=== PATIENT | female | born 1950 | race Caucasian/White ===

== ENCOUNTER 2022-01-16 09:03 | Outpatient (CLI) | payer MEDICARE | END 2022-01-16 09:04 | disposition home or self-care (01) | LOC: RAD-FRANK 09:03 | PROVIDERS: ATTEND Nurse Practitioner Family | DX: R06.02 Shortness of breath (principal) | CPT/HCPCS: 71046 ==

== ENCOUNTER 2022-10-31 13:54 | Outpatient (CLI) | payer MEDICARE | END 2022-10-31 13:55 | disposition home or self-care (01) | LOC: RAD-FRANK 13:54 | PROVIDERS: ATTEND Nurse Practitioner Family | DX: M79.675 Pain in left toe(s) (principal); S92.425D Nondisplaced fracture of distal phalanx of left great toe, subsequent encounter for fracture with routine healing ==

== ENCOUNTER 2023-05-11 22:49 | Inpatient (IN) | payer MEDICARE ==
[2023-05-11 23:57] LABS: #Eosinphils 0.1 thou/uL (0.0-0.7); #Monocytes 0.4 thou/uL (0.11-0.59); #Neutrophils 3.3 thou/uL (1.40-6.50); %Basophils 0.5 % (0.0-1.0); %Eosinophils 2.5 % (0.0-10.0); %Lymphocytes 10.9 % (21.0-51.0); %Monocytes 10.2 % (0.0-10.0); %Neutrophils 75.4 % (42.0-75.0); Hematocrit 33.6 % (36.0-47.0); Hemoglobin 10.2 g/dL (12.0-16.0); Mean Corpuscular HGB CONC 30.4 g/dL (32.0-36.0); Mean Corpuscular Hemoglobin 29.4 pg (27.0-31.0); Mean Corpuscular Volume 96.8 fl (78.0-98.0); Mean Platelet Volume 8.8 fL (7.4-10.4); Platelet Count 193 10x3/uL (130-400); RBC Distribution Width 14.3 % (11.5-14.5); Red Blood Cell (RBC) Count 3.47 mill/uL (4.20-5.40); White Blood Cell (WBC) Count 4.3 10x3/uL (4.8-10.8)
[2023-05-12 00:23] LABS: Troponin I Less than 0.010 ng/mL (< 0.028)
[2023-05-12 00:27] LABS: ALT (SGPT) 7 U/L (8-55); AST (SGOT) 12 U/L (5-34); Albumin 3.9 g/dL (3.4-4.8); Alkaline Phosphatase 80 U/L (40-110); Anion Gap 17 mmol/L (10-20); BUN (Urea Nitrogen) 12 mg/dL (9.8-20.1); Bilirubin, Total 1.4 mg/dL (0.2-1.2); Calc. Creatinine Clearance 0 mL/min (70-130); Calcium 8.3 mg/dL (7.8-10.44); Carbon Dioxide 27 mmol/L (23-31); Chloride 98 mmol/L (98-107); Estimated GFR 67; Globulin 2.3 g/dL (2.4-3.5); Glucose 139 mg/dL (83-110); Potassium 4.1 mmol/L (3.5-5.1); Protein, Total 6.2 g/dL (5.8-8.1); Sodium 138 mmol/L (136-145)
[2023-05-12 01:59] LABS: SARS-CoV-2 NAA Rapid Test DETECTED (NotDetected)
[2023-05-12] MEDS ORDERED: Ondansetron ODT 4 MG TAB PO PRN (02:34)
[2023-05-12] MEDS ORDERED: Ondansetron PF 4 MG/2 ML Vial IVP PRN (02:34)
[2023-05-12] MEDS ORDERED: Acetaminophen 650 MG Suppository PR PRN (02:34)
[2023-05-12] MEDS ORDERED: Albuterol 200 PUFF (6.7GM INHALER) INH PRN (02:34)
[2023-05-12] MEDS ORDERED: Benzonatate 100 MG CAP PO PRN (02:34)
[2023-05-12] MEDS ORDERED: Dexamethasone 4 mg/ml Vial SLOW IVP SCH (04:00)
[2023-05-12] MEDS ORDERED: Acetaminophen 325 MG TAB ONE (06:10)
[2023-05-12] MEDS ORDERED: Furosemide 40 MG/4 ML VIAL ONE (06:11)
[2023-05-12] MEDS ORDERED: Dexamethasone 10 MG/ML VIAL ONE (06:11)
[2023-05-12] MEDS: Furosemide 40 MG/4 ML VIAL SLOW IVP SCH (06:42)
[2023-05-12 06:46] LABS: #Eosinphils 0.1 thou/uL (0.0-0.7); #Monocytes 0.4 thou/uL (0.11-0.59); #Neutrophils 3.9 thou/uL (1.40-6.50); %Basophils 0.6 % (0.0-1.0); %Eosinophils 1.4 % (0.0-10.0); %Lymphocytes 12.6 % (21.0-51.0); %Monocytes 8.7 % (0.0-10.0); %Neutrophils 76.1 % (42.0-75.0); Hematocrit 38.4 % (36.0-47.0); Hemoglobin 11.6 g/dL (12.0-16.0); Mean Corpuscular HGB CONC 30.2 g/dL (32.0-36.0); Mean Corpuscular Hemoglobin 29.4 pg (27.0-31.0); Mean Corpuscular Volume 97.5 fl (78.0-98.0); Mean Platelet Volume 9.1 fL (7.4-10.4); Platelet Count 207 10x3/uL (130-400); RBC Distribution Width 14.3 % (11.5-14.5); Red Blood Cell (RBC) Count 3.94 mill/uL (4.20-5.40); White Blood Cell (WBC) Count 5.1 10x3/uL (4.8-10.8)
[2023-05-12 07:14] LABS: Anion Gap 15 mmol/L (10-20); BUN (Urea Nitrogen) 11 mg/dL (9.8-20.1); Calc. Creatinine Clearance 0 mL/min (70-130); Calcium 9.1 mg/dL (7.8-10.44); Carbon Dioxide 29 mmol/L (23-31); Chloride 97 mmol/L (98-107); Estimated GFR 70; Glucose 137 mg/dL (83-110); Potassium 4.1 mmol/L (3.5-5.1); Sodium 137 mmol/L (136-145)
[2023-05-12] MEDS ORDERED: Dextrose 5% in Water 1,000 ML IV PRN (07:21)
[2023-05-12] MEDS ORDERED: Glucagon 1 MG/ML KIT IM PRN (07:21)
[2023-05-12] MEDS ORDERED: Dextrose 50% Abboject 50 ML SYRINGE SLOW IVP PRN (07:21)
[2023-05-12] MEDS ORDERED: Ondansetron PF 4 MG/2 ML Vial ONE (07:39)
[2023-05-12 07:48] LABS: Hemoglobin A1c 7.4 % (4.0-6.0)
[2023-05-12] MEDS ORDERED: Pantoprazole 40 MG VIAL ONE (08:17)
[2023-05-12] MEDS ORDERED: Ascorbic Acid 500 mg Chewable Tablet ONE (08:24)
[2023-05-12] MEDS ORDERED: Zinc Sulfate 220 MG CAP ONE (08:25)
[2023-05-12] MEDS: Pantoprazole 40 MG VIAL IVP SCH (08:30)
[2023-05-12] MEDS ORDERED: dilTIAZem 25 MG/5 ML VIAL SLOW IVP SCH (08:30)
[2023-05-12] MEDS: Zinc Sulfate 220 MG CAP PO SCH (08:31)
[2023-05-12] MEDS: Ascorbic Acid 500 mg Chewable Tablet PO SCH (08:31)
[2023-05-12] MEDS ORDERED: dilTIAZem 25 MG/5 ML VIAL ONE (08:33)
[2023-05-12 09:09] LABS: ALT (SGPT) 8 U/L (8-55); AST (SGOT) 14 U/L (5-34); Albumin 4.3 g/dL (3.4-4.8); Alkaline Phosphatase 86 U/L (40-110); Bilirubin, Direct 0.6 mg/dL (0.1-0.3); Bilirubin, Total 1.5 mg/dL (0.2-1.2); Magnesium 1.4 mg/dL (1.6-2.6); Protein, Total 7.5 g/dL (5.8-8.1)
[2023-05-12] MEDS ORDERED: Magnesium Sulfate In Water 4 GM in Premix 1 BAG IVPB SCH (09:15)
[2023-05-12] MEDS ORDERED: Electrolyte Replacement Protocol 1 EACH FS SCH (09:15)
[2023-05-12] MEDS: dilTIAZem 125 MG, Admixture Fee 1 EACH in Sodium Chloride 0.9% 100 ML IVPB SCH (09:20)
[2023-05-12] MEDS: Cholecalciferol (Vitamin D3) 400 UNITS TAB PO SCH (10:04)
[2023-05-12 10:18] LABS: Troponin I 0.022 ng/mL (< 0.028)
[2023-05-12 12:15] VITALS: BMI 43.6
[2023-05-12] MEDS ORDERED: Iopamidol 370 76% 100 ML VIAL ONE (13:37)
[2023-05-12 13:50] LABS: ALT (SGPT) 9 U/L (8-55); AST (SGOT) 13 U/L (5-34); Albumin 4.2 g/dL (3.4-4.8); Alkaline Phosphatase 87 U/L (40-110); Bilirubin, Direct 0.7 mg/dL (0.1-0.3); Bilirubin, Total 1.5 mg/dL (0.2-1.2); Protein, Total 7.3 g/dL (5.8-8.1)
[2023-05-12 13:55] LABS: Troponin I 0.011 ng/mL (< 0.028)
[2023-05-12] MEDS: Acetaminophen 325 MG TAB PO PRN (16:12)
[2023-05-12] MEDS: Atorvastatin Calcium 20 MG TAB PO SCH (19:29)
[2023-05-12] MEDS: Gabapentin 400 MG CAP PO SCH (19:29)
[2023-05-12] MEDS ORDERED: REMDESIVIR 200 MG in Sodium Chloride 0.9% 250 ML 210 ML IV SCH (23:59)
[2023-05-13] MEDS: traMADol HCl 50 MG TAB PO PRN (00:32)
[2023-05-13] MEDS: AMOXicillin 250 MG CAP PO SCH ×4 (01:01→22:54)
[2023-05-13] MEDS: Melatonin 3 MG TAB PO PRN (02:03)
[2023-05-13 04:19] LABS: %Neutrophils 57.2 % (42.0-75.0); Hematocrit 34.8 % (36.0-47.0); Hemoglobin 10.8 g/dL (12.0-16.0); Mean Corpuscular Hemoglobin 29.5 pg (27.0-31.0); Mean Corpuscular Volume 95.1 fl (78.0-98.0); Platelet Count 203 10x3/uL (130-400); Red Blood Cell (RBC) Count 3.66 mill/uL (4.20-5.40); White Blood Cell (WBC) Count 3.5 10x3/uL (4.8-10.8)
[2023-05-13 04:20] LABS: #Monocytes 0.6 thou/uL (0.11-0.59); %Lymphocytes 26.6 % (21.0-51.0); %Monocytes 15.6 % (0.0-10.0)
[2023-05-13 04:48] LABS: Anion Gap 15 mmol/L (10-20); BUN (Urea Nitrogen) 13 mg/dL (9.8-20.1); Calc. Creatinine Clearance 115 mL/min (70-130); Calcium 8.9 mg/dL (7.8-10.44); Carbon Dioxide 31 mmol/L (23-31); Chloride 94 mmol/L (98-107); Estimated GFR 74; Glucose 143 mg/dL (83-110); Magnesium 1.9 mg/dL (1.6-2.6); Potassium 3.5 mmol/L (3.5-5.1); Sodium 136 mmol/L (136-145)
[2023-05-13 04:51] LABS: ALT (SGPT) Less than 7 U/L (8-55); AST (SGOT) 13 U/L (5-34); Alkaline Phosphatase 71 U/L (40-110); Bilirubin, Direct 0.5 mg/dL (0.1-0.3); Bilirubin, Total 1.1 mg/dL (0.2-1.2); Protein, Total 6.7 g/dL (5.8-8.1)
[2023-05-13] MEDS: Furosemide 40 MG/4 ML VIAL SLOW IVP SCH (06:07)
[2023-05-13] MEDS: Dexamethasone 4 mg/ml Vial SLOW IVP SCH (06:08)
[2023-05-13] MEDS: HumaLOG 300 UNITS/3 ML VIAL SC PRN ×4 (06:46→21:44)
[2023-05-13] MEDS: dilTIAZem 125 MG, Admixture Fee 1 EACH in Sodium Chloride 0.9% 100 ML IVPB SCH (06:57)
[2023-05-13] MEDS ORDERED: Magnesium 2 GM/50 ML(in water) 2 GM in Premix 1 BAG IVPB SCH (08:00)
[2023-05-13 08:23] LABS: Legionella Urinary Ag Negative (Negative); Strep pneumo Urine Ag NEGATIVE (NEGATIVE)
[2023-05-13] MEDS: Gabapentin 400 MG CAP PO SCH ×3 (08:47→22:53)
[2023-05-13] MEDS: Pantoprazole 40 MG VIAL IVP SCH (08:47)
[2023-05-13] MEDS: Zinc Sulfate 220 MG CAP PO SCH (08:47)
[2023-05-13] MEDS: Ascorbic Acid 500 mg Chewable Tablet PO SCH (08:47)
[2023-05-13] MEDS: Cholecalciferol (Vitamin D3) 400 UNITS TAB PO SCH (08:47)
[2023-05-13] MEDS: Potassium Chloride 20 MEQ in Premix 1 BAG IVPB SCH ×2 (08:48→11:52)
[2023-05-13] MEDS: Acetaminophen 325 MG TAB PO PRN (11:56)
[2023-05-13 17:24] LABS: Potassium 4.4 mmol/L (3.5-5.1)
[2023-05-13] MEDS: Atorvastatin Calcium 20 MG TAB PO SCH (22:53)
[2023-05-13] MEDS: REMDESIVIR 100 MG in Sodium Chloride 0.9% 250 ML 230 ML IV SCH (22:55)
[2023-05-14] MEDS: Acetaminophen 325 MG TAB PO PRN ×2 (02:11→22:27)
[2023-05-14] MEDS: Melatonin 3 MG TAB PO PRN ×2 (02:11→21:52)
[2023-05-14 05:33] LABS: #Monocytes 0.7 thou/uL (0.11-0.59); #Neutrophils 1.7 thou/uL (1.40-6.50); %Monocytes 18.7 % (0.0-10.0); %Neutrophils 47.7 % (42.0-75.0); Hematocrit 36.5 % (36.0-47.0); Mean Corpuscular HGB CONC 30.1 g/dL (32.0-36.0); Mean Corpuscular Hemoglobin 29.3 pg (27.0-31.0); Mean Corpuscular Volume 97.1 fl (78.0-98.0); Mean Platelet Volume 9.1 fL (7.4-10.4); Platelet Count 207 10x3/uL (130-400); RBC Distribution Width 14.1 % (11.5-14.5); Red Blood Cell (RBC) Count 3.76 mill/uL (4.20-5.40); White Blood Cell (WBC) Count 3.5 10x3/uL (4.8-10.8)
[2023-05-14 06:02] LABS: Anion Gap 13 mmol/L (10-20); BUN (Urea Nitrogen) 21 mg/dL (9.8-20.1); Calc. Creatinine Clearance 99 mL/min (70-130); Calcium 8.5 mg/dL (7.8-10.44); Carbon Dioxide 34 mmol/L (23-31); Chloride 95 mmol/L (98-107); Estimated GFR 60; Glucose 234 mg/dL (83-110); Magnesium 1.9 mg/dL (1.6-2.6); Potassium 4.1 mmol/L (3.5-5.1); Sodium 138 mmol/L (136-145)
[2023-05-14] MEDS: Furosemide 40 MG/4 ML VIAL SLOW IVP SCH (06:27)
[2023-05-14] MEDS: Dexamethasone 4 mg/ml Vial SLOW IVP SCH (06:27)
[2023-05-14] MEDS: HumaLOG 300 UNITS/3 ML VIAL SC PRN ×4 (06:27→20:42)
[2023-05-14] MEDS: Zinc Sulfate 220 MG CAP PO SCH (07:58)
[2023-05-14] MEDS: Gabapentin 400 MG CAP PO SCH ×3 (07:58→20:44)
[2023-05-14] MEDS: AMOXicillin 250 MG CAP PO SCH (07:59)
[2023-05-14] MEDS: Ascorbic Acid 500 mg Chewable Tablet PO SCH (07:59)
[2023-05-14] MEDS: Cholecalciferol (Vitamin D3) 400 UNITS TAB PO SCH (07:59)
[2023-05-14] MEDS ORDERED: Magnesium 2 GM/50 ML(in water) 2 GM in Premix 1 BAG IVPB SCH (08:00)
[2023-05-14] MEDS: dilTIAZem 125 MG, Admixture Fee 1 EACH in Sodium Chloride 0.9% 100 ML IVPB SCH (10:18)
[2023-05-14] MEDS ORDERED: Sodium Chloride 0.65% Nasal 44 ML BOT EA NARE PRN (18:34)
[2023-05-14] MEDS: REMDESIVIR 100 MG in Sodium Chloride 0.9% 250 ML 230 ML IV SCH (20:42)
[2023-05-14] MEDS: Fluticasone Propionate Nasal Spray 16 gm Bottle NASAL SCH (20:43)
[2023-05-14] MEDS: Insulin Glargine 30 UNITS/0.3 ML VIAL SC SCH (20:45)
[2023-05-14] MEDS: Atorvastatin Calcium 20 MG TAB PO SCH (20:45)
[2023-05-15 05:46] LABS: #Monocytes 0.6 thou/uL (0.11-0.59); #Neutrophils 1.9 thou/uL (1.40-6.50); %Basophils 0.3 % (0.0-1.0); %Lymphocytes 34.9 % (21.0-51.0); %Monocytes 16.5 % (0.0-10.0); %Neutrophils 47.8 % (42.0-75.0); Hematocrit 39.2 % (36.0-47.0); Hemoglobin 11.9 g/dL (12.0-16.0); Mean Corpuscular HGB CONC 30.4 g/dL (32.0-36.0); Mean Corpuscular Volume 95.4 fl (78.0-98.0); Mean Platelet Volume 8.9 fL (7.4-10.4); Platelet Count 227 10x3/uL (130-400); RBC Distribution Width 13.8 % (11.5-14.5); Red Blood Cell (RBC) Count 4.11 mill/uL (4.20-5.40); White Blood Cell (WBC) Count 3.9 10x3/uL (4.8-10.8)
[2023-05-15] MEDS: traMADol HCl 50 MG TAB PO PRN (05:56)
[2023-05-15] MEDS: Dexamethasone 4 mg/ml Vial SLOW IVP SCH (05:57)
[2023-05-15] MEDS: Furosemide 40 MG/4 ML VIAL SLOW IVP SCH (05:58)
[2023-05-15] MEDS: HumaLOG 300 UNITS/3 ML VIAL SC PRN ×2 (06:45→16:24)
[2023-05-15 08:08] LABS: Anion Gap 14 mmol/L (10-20); BUN (Urea Nitrogen) 24 mg/dL (9.8-20.1); Calc. Creatinine Clearance 108 mL/min (70-130); Carbon Dioxide 34 mmol/L (23-31); Chloride 92 mmol/L (98-107); Estimated GFR 72; Glucose 206 mg/dL (83-110); Magnesium 1.8 mg/dL (1.6-2.6); Potassium 3.9 mmol/L (3.5-5.1); Sodium 136 mmol/L (136-145)
[2023-05-15] MEDS: Enoxaparin 120 MG/0.8 ML SYRINGE SC SCH ×2 (08:49→21:46)
[2023-05-15] MEDS: Ascorbic Acid 500 mg Chewable Tablet PO SCH (08:50)
[2023-05-15] MEDS: Gabapentin 400 MG CAP PO SCH ×3 (08:50→21:46)
[2023-05-15] MEDS: Zinc Sulfate 220 MG CAP PO SCH (08:50)
[2023-05-15] MEDS: Cholecalciferol (Vitamin D3) 400 UNITS TAB PO SCH (08:50)
[2023-05-15] MEDS ORDERED: Magnesium 2 GM/50 ML(in water) 2 GM in Premix 1 BAG IVPB SCH (09:00)
[2023-05-15] MEDS: Fluticasone Propionate Nasal Spray 16 gm Bottle NASAL SCH ×2 (09:27→21:48)
[2023-05-15] MEDS: dilTIAZem 125 MG, Admixture Fee 1 EACH in Sodium Chloride 0.9% 100 ML IVPB SCH (09:28)
[2023-05-15] MEDS: dilTIAZem 30 MG TAB PO SCH (21:46)
[2023-05-15] MEDS: Atorvastatin Calcium 20 MG TAB PO SCH (21:46)
[2023-05-15] MEDS: Insulin Glargine 30 UNITS/0.3 ML VIAL SC SCH (21:47)
[2023-05-15] MEDS: REMDESIVIR 100 MG in Sodium Chloride 0.9% 250 ML 230 ML IV SCH (21:48)
[2023-05-16 04:15] LABS: #Monocytes 0.9 thou/uL (0.11-0.59); #Neutrophils 2.3 thou/uL (1.40-6.50); %Basophils 0.2 % (0.0-1.0); %Lymphocytes 34.8 % (21.0-51.0); %Monocytes 18.4 % (0.0-10.0); %Neutrophils 46.2 % (42.0-75.0); Hematocrit 43.3 % (36.0-47.0); Hemoglobin 13.4 g/dL (12.0-16.0); Mean Corpuscular HGB CONC 30.9 g/dL (32.0-36.0); Mean Corpuscular Hemoglobin 29.1 pg (27.0-31.0); Mean Corpuscular Volume 93.9 fl (78.0-98.0); Mean Platelet Volume 8.7 fL (7.4-10.4); Platelet Count 232 10x3/uL (130-400); RBC Distribution Width 13.6 % (11.5-14.5); Red Blood Cell (RBC) Count 4.61 mill/uL (4.20-5.40); White Blood Cell (WBC) Count 4.9 10x3/uL (4.8-10.8)
[2023-05-16 04:36] LABS: Anion Gap 17 mmol/L (10-20); BUN (Urea Nitrogen) 27 mg/dL (9.8-20.1); Calc. Creatinine Clearance 107 mL/min (70-130); Carbon Dioxide 33 mmol/L (23-31); Chloride 91 mmol/L (98-107); Estimated GFR 71; Glucose 224 mg/dL (83-110); Magnesium 1.6 mg/dL (1.6-2.6); Sodium 137 mmol/L (136-145)
[2023-05-16] MEDS: Furosemide 40 MG/4 ML VIAL SLOW IVP SCH (05:30)
[2023-05-16] MEDS: Dexamethasone 4 mg/ml Vial SLOW IVP SCH (05:30)
[2023-05-16] MEDS: HumaLOG 300 UNITS/3 ML VIAL SC PRN ×4 (06:02→20:45)
[2023-05-16] MEDS ORDERED: Magnesium 2 GM/50 ML(in water) 2 GM in Premix 1 BAG IVPB SCH (08:00)
[2023-05-16] MEDS: Cholecalciferol (Vitamin D3) 400 UNITS TAB PO SCH (08:57)
[2023-05-16] MEDS: Enoxaparin 120 MG/0.8 ML SYRINGE SC SCH (08:57)
[2023-05-16] MEDS: Gabapentin 400 MG CAP PO SCH ×3 (08:57→20:23)
[2023-05-16] MEDS: dilTIAZem 30 MG TAB PO SCH ×2 (08:57→20:22)
[2023-05-16] MEDS: Zinc Sulfate 220 MG CAP PO SCH (08:58)
[2023-05-16] MEDS: Ascorbic Acid 500 mg Chewable Tablet PO SCH (08:58)
[2023-05-16] MEDS: Fluticasone Propionate Nasal Spray 16 gm Bottle NASAL SCH ×2 (08:59→20:24)
[2023-05-16] MEDS: Furosemide 20 MG TAB PO SCH (14:15)
[2023-05-16] MEDS: Apixaban 5 MG TAB PO SCH (20:23)
[2023-05-16] MEDS: Atorvastatin Calcium 20 MG TAB PO SCH (20:23)
[2023-05-16] MEDS: REMDESIVIR 100 MG in Sodium Chloride 0.9% 250 ML 230 ML IV SCH (20:24)
[2023-05-16] MEDS: Melatonin 3 MG TAB PO PRN (20:28)
[2023-05-16] MEDS: Insulin Glargine 30 UNITS/0.3 ML VIAL SC SCH (20:39)
[2023-05-17 04:56] LABS: %Basophils 0.2 % (0.0-1.0); %Lymphocytes 32.7 % (21.0-51.0); %Monocytes 16.5 % (0.0-10.0); %Neutrophils 50.3 % (42.0-75.0); Hemoglobin 14.7 g/dL (12.0-16.0); Mean Corpuscular HGB CONC 31.3 g/dL (32.0-36.0); Mean Corpuscular Hemoglobin 29.1 pg (27.0-31.0); Mean Corpuscular Volume 92.9 fl (78.0-98.0); Mean Platelet Volume 9.6 fL (7.4-10.4); Platelet Count 233 10x3/uL (130-400); RBC Distribution Width 13.8 % (11.5-14.5); Red Blood Cell (RBC) Count 5.06 mill/uL (4.20-5.40)
[2023-05-17] MEDS: traMADol HCl 50 MG TAB PO PRN (05:36)
[2023-05-17] MEDS: HumaLOG 300 UNITS/3 ML VIAL SC PRN ×2 (05:37→11:17)
[2023-05-17 05:39] LABS: Anion Gap 20 mmol/L (10-20); BUN (Urea Nitrogen) 39 mg/dL (9.8-20.1); Calc. Creatinine Clearance 88 mL/min (70-130); Calcium 9.4 mg/dL (7.8-10.44); Carbon Dioxide 32 mmol/L (23-31); Chloride 89 mmol/L (98-107); Estimated GFR 57; Glucose 219 mg/dL (83-110); Magnesium 1.8 mg/dL (1.6-2.6); Potassium 3.7 mmol/L (3.5-5.1); Sodium 137 mmol/L (136-145)
[2023-05-17] MEDS ORDERED: Dexamethasone 1 MG TAB PO SCH (08:00)
[2023-05-17] MEDS ORDERED: Magnesium 2 GM/50 ML(in water) 2 GM in Premix 1 BAG IVPB SCH (08:00)
[2023-05-17] MEDS: Apixaban 5 MG TAB PO SCH (09:33)
[2023-05-17] MEDS: Ascorbic Acid 500 mg Chewable Tablet PO SCH (09:34)
[2023-05-17] MEDS: Furosemide 20 MG TAB PO SCH ×2 (09:34→14:50)
[2023-05-17] MEDS: dilTIAZem 30 MG TAB PO SCH (09:34)
[2023-05-17] MEDS: Gabapentin 400 MG CAP PO SCH ×2 (09:34→14:50)
[2023-05-17] MEDS: Cholecalciferol (Vitamin D3) 400 UNITS TAB PO SCH (09:34)
[2023-05-17] MEDS: Zinc Sulfate 220 MG CAP PO SCH (09:35)
[2023-05-17] MEDS: Fluticasone Propionate Nasal Spray 16 gm Bottle NASAL SCH (09:45)
[2023-05-17 16:02] VITALS: BP 160/68; TEMP 97.4
== END 2023-05-17 17:23 | disposition home or self-care (01) | DRG 177 ==
LOC: ERS 22:49 → ERHOLD 05-12 02:30 → OBSVTOIN 05-12 08:10 → IMCU/EMU 05-12 11:57 → 2NO 05-15 19:42
PROVIDERS: ADMIT Student in an Organized Health Care Education/Training Program; ATTEND Family Medicine
PROC: 5A09357 Assistance with Respiratory Ventilation, Less than 24 Consecutive Hours, Continuous Positive Airway Pressure (ICD-10-PCS; principal; 2023-05-12)
DX: U07.1 COVID-19 (principal); I50.33 Acute on chronic diastolic (congestive) heart failure; J12.82 Pneumonia due to coronavirus disease 2019; J96.21 Acute and chronic respiratory failure with hypoxia; Z68.41 Body mass index [BMI] 40.0-44.9, adult; I48.91 Unspecified atrial fibrillation; D64.9 Anemia, unspecified; Z79.84 Long term (current) use of oral hypoglycemic drugs; Z79.899 Other long term (current) drug therapy; E78.5 Hyperlipidemia, unspecified; Z98.890 Other specified postprocedural states; F32.A Depression, unspecified; E11.42 Type 2 diabetes mellitus with diabetic polyneuropathy; J20.9 Acute bronchitis, unspecified; E66.9 Obesity, unspecified; Z90.49 Acquired absence of other specified parts of digestive tract; Z87.891 Personal history of nicotine dependence; E66.01 Morbid (severe) obesity due to excess calories
CPT/HCPCS: 36415; 36416; 71045; 71260; 80048; 80053; 80076; 83036; 83605; 83735; 83880; 84145; 84443; 84484; 85025; 86140; 86850; 86900; 86901; 87040; 87081; 87449; 87899; 93005; 93306; 94660; 96374; C9113; J0248; J1100; J1650; J1815; J1940; J2405; J3475; J3480; J3490; J7050; J8540; Q9967

== ENCOUNTER 2023-06-09 17:20 | Inpatient (IN) | payer MEDICARE ==
[2023-06-09] MEDS ORDERED: Cefepime 2 GM VIAL ONE (17:41)
[2023-06-09] MEDS ORDERED: Sodium Chloride 0.9% 100 ML ONE (17:41)
[2023-06-09 17:47] LABS: #Eosinphils 0.1 thou/uL (0.0-0.7); #Monocytes 0.6 thou/uL (0.11-0.59); #Neutrophils 4.8 thou/uL (1.40-6.50); %Basophils 0.2 % (0.0-1.0); %Eosinophils 1.3 % (0.0-10.0); %Lymphocytes 33.2 % (21.0-51.0); %Neutrophils 57.5 % (42.0-75.0); Hematocrit 31.4 % (36.0-47.0); Hemoglobin 9.3 g/dL (12.0-16.0); Mean Corpuscular HGB CONC 29.6 g/dL (32.0-36.0); Mean Corpuscular Hemoglobin 29.1 pg (27.0-31.0); Mean Corpuscular Volume 98.1 fl (78.0-98.0); Mean Platelet Volume 9.2 fL (7.4-10.4); Platelet Count 185 10x3/uL (130-400); RBC Distribution Width 14.5 % (11.5-14.5); White Blood Cell (WBC) Count 8.3 10x3/uL (4.8-10.8)
[2023-06-09 17:51] LABS: Actual Bicarbonate (HCO3v) 28.5 mEq/L (22-28); Base Excess 1.5 mEq/L (-2.0 to +3.0); Calcium, Ionized (venous) 1.01 mmol/L (1.16-1.32); Chloride (VBG) 97 mmol/L (98-106); Hematocrit-VBG 31 % (36.0-47.0); Hemoglobin (Hb) 10.6 g/dL (11.7-16.1); Potassium (VBG) 5.12 mmol/L (3.70-5.30); Sodium 133 mmol/L (133-146); pH (venous) 7.318 (7.32-7.43)
[2023-06-09] MEDS ORDERED: Vancomycin (BATCH) 2 GM in Premix 1 BAG IVPB SCH (18:00)
[2023-06-09 18:09] LABS: ALT (SGPT) Less than 7 U/L (8-55); AST (SGOT) 10 U/L (5-34); Albumin 3.4 g/dL (3.4-4.8); Alkaline Phosphatase 84 U/L (40-110); Anion Gap 14 mmol/L (10-20); BUN (Urea Nitrogen) 35 mg/dL (9.8-20.1); Bilirubin, Total 0.8 mg/dL (0.2-1.2); Calc. Creatinine Clearance 0 mL/min (70-130); Calcium 7.6 mg/dL (7.8-10.44); Carbon Dioxide 27 mmol/L (23-31); Chloride 98 mmol/L (98-107); Estimated GFR 22; Globulin 2.4 g/dL (2.4-3.5); Glucose 143 mg/dL (83-110); Potassium 5.2 mmol/L (3.5-5.1); Protein, Total 5.8 g/dL (5.8-8.1); Sodium 134 mmol/L (136-145)
[2023-06-09 18:13] LABS: Troponin I 0.173 ng/mL (< 0.028)
[2023-06-09 18:16] LABS: INR-International Normal Ratio 1.4; PTT 29.7 sec (22.9-36.1); Prothrombin Time 17.5 sec (12.0-14.7)
[2023-06-09 18:54] LABS: Bacteria/HPF 1+ HPF (None Seen); Bilirubin Negative (Negative); Blood, Urine Negative (Negative); CAUTI Indications for Culture Dysuria,urgency,freq; Clarity Turbid (Clear); Glucose, Urine (Dipstick) Normal (Negative); Ketone, Urine Negative (Negative); Leukocyte 250 Leu/uL (Negative); Nitrite Negative (Negative); Protein, Urine (Dipstick) 30 mg/dL (Neg-Trace); RBC/HPF 0-3 HPF (0-3); Specific Gravity, Urine 1.022 (1.002-1.036); Urobilinogen Normal mg/dL (Less than 2); WBC/HPF 21-50 HPF (0-3)
[2023-06-09] MEDS ORDERED: NOREPINEPHRINE 8 MG/250 ML-D5W 250 ML ONE (18:54)
[2023-06-09 18:55] LABS: Urine Culture Reflex Yes Yes
[2023-06-09 19:18] LABS: SARS-CoV-2 NAA Rapid Test Not Detected (NotDetected)
[2023-06-09] MEDS ORDERED: Aspirin Chewable 81 MG TAB ONE (19:45)
[2023-06-09] MEDS ORDERED: Vancomycin (BATCH) 2 GM/500 ML BAG ONE (19:47)
[2023-06-09] MEDS ORDERED: HYDROcodone/Acetaminophen 5/325 mg Tablet PO PRN ×2 (20:21)
[2023-06-09] MEDS ORDERED: Ondansetron PF 4 MG/2 ML Vial IVP PRN (20:21)
[2023-06-09] MEDS ORDERED: Ondansetron ODT 4 MG TAB PO PRN (20:21)
[2023-06-09] MEDS ORDERED: Acetaminophen 325 MG TAB PO PRN (20:21)
[2023-06-09] MEDS ORDERED: NOREPINEPHRINE 8 MG/250 ML-D5W 250 ML IVPB SCH (20:30)
[2023-06-09] MEDS ORDERED: Glucagon 1 MG/ML KIT IM PRN (20:42)
[2023-06-09] MEDS ORDERED: Dextrose 5% in Water 1,000 ML IV PRN (20:42)
[2023-06-09] MEDS ORDERED: Dextrose 50% Abboject 50 ML SYRINGE SLOW IVP PRN (20:42)
[2023-06-09] MEDS ORDERED: Vancomycin 1 GM in Sodium Chloride 0.9% 250 ML 250 ML IVPB SCH (21:00)
[2023-06-09] MEDS ORDERED: Sodium Chloride 0.9% 1,000 ML IV SCH (21:45)
[2023-06-09] MEDS ORDERED: Digoxin 0.5 MG/2 ML AMP SLOW IVP SCH (21:45)
[2023-06-09] MEDS: Apixaban 5 MG TAB PO SCH (21:59)
[2023-06-09] MEDS: Gabapentin 400 MG CAP PO SCH (21:59)
[2023-06-09 22:02] LABS: Magnesium 1.4 mg/dL (1.6-2.6)
[2023-06-09] MEDS ORDERED: Vancomycin Dose by Levels Sliding Scale (Wt > 99) FS SCH (22:15)
[2023-06-09] MEDS: HumaLOG 300 UNITS/3 ML VIAL SC PRN (22:30)
[2023-06-09] MEDS ORDERED: Hydrocortisone Sod Succ/PF 100 mg/2 ml Vial IVP SCH (23:00)
[2023-06-09] MEDS ORDERED: Magnesium 2 GM/50 ML(in water) 4 GM in Premix 1 BAG IVPB SCH (23:00)
[2023-06-10 04:15] LABS: #Monocytes 0.2 thou/uL (0.11-0.59); #Neutrophils 4.6 thou/uL (1.40-6.50); %Basophils 0.3 % (0.0-1.0); %Eosinophils 0.5 % (0.0-10.0); %Lymphocytes 18.5 % (21.0-51.0); %Monocytes 3.8 % (0.0-10.0); %Neutrophils 75.6 % (42.0-75.0); Hematocrit 29.2 % (36.0-47.0); Hemoglobin 8.8 g/dL (12.0-16.0); Mean Corpuscular HGB CONC 30.1 g/dL (32.0-36.0); Mean Corpuscular Hemoglobin 29.5 pg (27.0-31.0); Mean Platelet Volume 9.1 fL (7.4-10.4); Platelet Count 156 10x3/uL (130-400); RBC Distribution Width 14.5 % (11.5-14.5); Red Blood Cell (RBC) Count 2.98 mill/uL (4.20-5.40); White Blood Cell (WBC) Count 6.1 10x3/uL (4.8-10.8)
[2023-06-10 04:43] LABS: ALT (SGPT) Less than 7 U/L (8-55); AST (SGOT) 9 U/L (5-34); Albumin 3.1 g/dL (3.4-4.8); Alkaline Phosphatase 76 U/L (40-110); Anion Gap 11 mmol/L (10-20); BUN (Urea Nitrogen) 32 mg/dL (9.8-20.1); Bilirubin, Total 0.6 mg/dL (0.2-1.2); Calc. Creatinine Clearance 57 mL/min (70-130); Calcium 7.8 mg/dL (7.8-10.44); Carbon Dioxide 28 mmol/L (23-31); Chloride 100 mmol/L (98-107); Estimated GFR 30; Globulin 2.8 g/dL (2.4-3.5); Glucose 272 mg/dL (83-110); Magnesium 1.9 mg/dL (1.6-2.6); Potassium 5.5 mmol/L (3.5-5.1); Protein, Total 5.9 g/dL (5.8-8.1); Sodium 133 mmol/L (136-145)
[2023-06-10 04:47] LABS: Troponin I 0.198 ng/mL (< 0.028)
[2023-06-10] MEDS: Hydrocortisone Sod Succ/PF 100 mg/2 ml Vial IVP SCH ×4 (06:20→23:52)
[2023-06-10] MEDS: HumaLOG 300 UNITS/3 ML VIAL SC PRN ×4 (06:20→20:56)
[2023-06-10] MEDS ORDERED: Electrolyte Replacement Protocol 1 EACH FS SCH (07:15)
[2023-06-10] MEDS ORDERED: LOKELMA 10 GM PACKET PO SCH (07:30)
[2023-06-10] MEDS ORDERED: Electrolyte Replacement Protocol FS PRN (07:30)
[2023-06-10] MEDS ORDERED: Magnesium 2 GM/50 ML(in water) 4 GM in Premix 1 BAG IVPB SCH (07:30)
[2023-06-10 08:01] VITALS: BMI 45.7
[2023-06-10] MEDS ORDERED: Magnesium 2 GM/50 ML(in water) 2 GM in Premix 1 BAG IVPB SCH (08:15)
[2023-06-10] MEDS: Gabapentin 400 MG CAP PO SCH ×3 (08:25→20:58)
[2023-06-10] MEDS: Apixaban 5 MG TAB PO SCH ×2 (08:25→20:58)
[2023-06-10] MEDS: Atorvastatin Calcium 20 MG TAB PO SCH (08:25)
[2023-06-10] MEDS: Sodium Chloride 0.9% 1,000 ML IV SCH ×2 (11:14→18:17)
[2023-06-10] MEDS ORDERED: Sodium Chloride 0.9% 500 ML IV SCH (11:15)
[2023-06-10 15:14] LABS: Anion Gap 10 mmol/L (10-20); BUN (Urea Nitrogen) 26 mg/dL (9.8-20.1); Calc. Creatinine Clearance 81 mL/min (70-130); Carbon Dioxide 29 mmol/L (23-31); Chloride 101 mmol/L (98-107); Estimated GFR 46; Glucose 237 mg/dL (83-110); Potassium 4.9 mmol/L (3.5-5.1); Sodium 135 mmol/L (136-145)
[2023-06-10] MEDS ORDERED: Cefepime 1 GM in Sodium Chloride 0.9% 100 ML IVPB SCH (18:00)
[2023-06-10 20:23] LABS: Vancomycin, Random 10.9 ug/mL (See Comment)
[2023-06-10 20:32] LABS: Chloride 101 mmol/L (98-107); Potassium 4.6 mmol/L (3.5-5.1); Sodium 134 mmol/L (136-145)
[2023-06-10 20:33] LABS: Calcium 8.1 mg/dL (7.8-10.44)
[2023-06-10 20:34] LABS: Glucose 252 mg/dL (83-110)
[2023-06-10 20:35] LABS: Anion Gap 11 mmol/L (10-20); Carbon Dioxide 27 mmol/L (23-31)
[2023-06-10 20:38] LABS: Calc. Creatinine Clearance 88 mL/min (70-130); Estimated GFR 51
[2023-06-10 20:39] LABS: BUN (Urea Nitrogen) 24 mg/dL (9.8-20.1)
[2023-06-10] MEDS: Insulin Glargine 30 UNITS/0.3 ML VIAL SC SCH (20:57)
[2023-06-10] MEDS ORDERED: Vancomycin (BATCH) 1.75 GM in Premix 1 BAG IVPB SCH (21:00)
[2023-06-11] MEDS: Sodium Chloride 0.9% 1,000 ML IV SCH (02:23)
[2023-06-11 04:49] LABS: #Monocytes 0.3 thou/uL (0.11-0.59); #Neutrophils 5.5 thou/uL (1.40-6.50); %Basophils 0.2 % (0.0-1.0); %Lymphocytes 11.3 % (21.0-51.0); %Monocytes 4.5 % (0.0-10.0); %Neutrophils 82.9 % (42.0-75.0); Hematocrit 30.6 % (36.0-47.0); Hemoglobin 9.3 g/dL (12.0-16.0); Mean Corpuscular HGB CONC 30.4 g/dL (32.0-36.0); Mean Corpuscular Hemoglobin 29.2 pg (27.0-31.0); Mean Corpuscular Volume 95.9 fl (78.0-98.0); Mean Platelet Volume 9.3 fL (7.4-10.4); Platelet Count 178 10x3/uL (130-400); RBC Distribution Width 14.1 % (11.5-14.5); Red Blood Cell (RBC) Count 3.19 mill/uL (4.20-5.40); White Blood Cell (WBC) Count 6.7 10x3/uL (4.8-10.8)
[2023-06-11 05:19] LABS: Iron 65 ug/dL (50-170); Iron Binding Capacity, Total 210 mcg/dL (265-497)
[2023-06-11 05:20] LABS: ALT (SGPT) Less than 7 U/L (8-55); AST (SGOT) 9 U/L (5-34); Albumin 2.8 g/dL (3.4-4.8); Alkaline Phosphatase 70 U/L (40-110); Anion Gap 13 mmol/L (10-20); BUN (Urea Nitrogen) 19 mg/dL (9.8-20.1); Bilirubin, Direct 0.2 mg/dL (0.1-0.3); Bilirubin, Total 0.4 mg/dL (0.2-1.2); Calc. Creatinine Clearance 112 mL/min (70-130); Carbon Dioxide 22 mmol/L (23-31); Chloride 105 mmol/L (98-107); Estimated GFR 67; Glucose 186 mg/dL (83-110); Iron 66 ug/dL (50-170); Iron Binding Capacity, Total 206 mcg/dL (265-497); Potassium 4.6 mmol/L (3.5-5.1); Protein, Total 5.8 g/dL (5.8-8.1); Sodium 135 mmol/L (136-145)
[2023-06-11] MEDS ORDERED: Cefepime 1 GM in Sodium Chloride 0.9% 100 ML IVPB SCH (06:00)
[2023-06-11] MEDS: Hydrocortisone Sod Succ/PF 100 mg/2 ml Vial IVP SCH ×3 (06:17→23:37)
[2023-06-11] MEDS: HumaLOG 300 UNITS/3 ML VIAL SC PRN ×3 (06:31→16:45)
[2023-06-11] MEDS ORDERED: Magnesium 2 GM/50 ML(in water) 2 GM in Premix 1 BAG IVPB SCH (08:00)
[2023-06-11] MEDS ORDERED: Potassium Chloride 20 MEQ TAB PO SCH (08:00)
[2023-06-11] MEDS: Atorvastatin Calcium 20 MG TAB PO SCH (08:11)
[2023-06-11] MEDS: Apixaban 5 MG TAB PO SCH ×2 (08:11→23:36)
[2023-06-11] MEDS: Gabapentin 400 MG CAP PO SCH ×3 (08:11→23:36)
[2023-06-11] MEDS: dilTIAZem 30 MG TAB PO SCH ×4 (08:13→23:36)
[2023-06-11] MEDS: traMADol HCl 50 MG TAB PO PRN ×2 (08:14→23:54)
[2023-06-11 08:22] LABS: Ferritin 297.78 ng/mL (10-291)
[2023-06-11] MEDS ORDERED: FLU VACC QS2023(65UP)/MF59C/PF 60 MCG/0.5 ML SYRINGE IM ONE (09:00)
[2023-06-11] MEDS: Cefepime 2 GM in Sodium Chloride 0.9% 100 ML IVPB SCH (17:19)
[2023-06-11] MEDS: Flecainide 50 MG TAB PO SCH (23:36)
[2023-06-11] MEDS: Insulin Glargine 30 UNITS/0.3 ML VIAL SC SCH (23:37)
[2023-06-11] MEDS: Melatonin 3 MG TAB PO PRN (23:46)
[2023-06-12 04:26] LABS: #Monocytes 0.8 thou/uL (0.11-0.59); #Neutrophils 8.1 thou/uL (1.40-6.50); %Basophils 0.3 % (0.0-1.0); %Eosinophils 0.4 % (0.0-10.0); %Lymphocytes 11.2 % (21.0-51.0); %Monocytes 7.6 % (0.0-10.0); %Neutrophils 79.6 % (42.0-75.0); Hematocrit 32.1 % (36.0-47.0); Hemoglobin 9.5 g/dL (12.0-16.0); Mean Corpuscular HGB CONC 29.6 g/dL (32.0-36.0); Mean Corpuscular Hemoglobin 28.9 pg (27.0-31.0); Mean Corpuscular Volume 97.6 fl (78.0-98.0); Mean Platelet Volume 9.1 fL (7.4-10.4); Platelet Count 241 10x3/uL (130-400); RBC Distribution Width 14.4 % (11.5-14.5); Red Blood Cell (RBC) Count 3.29 mill/uL (4.20-5.40); White Blood Cell (WBC) Count 10.2 10x3/uL (4.8-10.8)
[2023-06-12 04:49] LABS: Anion Gap 11 mmol/L (10-20); BUN (Urea Nitrogen) 17 mg/dL (9.8-20.1); Calc. Creatinine Clearance 125 mL/min (70-130); Calcium 8.5 mg/dL (7.8-10.44); Carbon Dioxide 29 mmol/L (23-31); Chloride 103 mmol/L (98-107); Estimated GFR 78; Glucose 147 mg/dL (83-110); Magnesium 2.2 mg/dL (1.6-2.6); Potassium 4.2 mmol/L (3.5-5.1); Sodium 139 mmol/L (136-145)
[2023-06-12] MEDS: Cefepime 2 GM in Sodium Chloride 0.9% 100 ML IVPB SCH ×2 (06:40→17:48)
[2023-06-12] MEDS: dilTIAZem 30 MG TAB PO SCH ×4 (09:55→21:31)
[2023-06-12] MEDS: Atorvastatin Calcium 20 MG TAB PO SCH (09:55)
[2023-06-12] MEDS: Gabapentin 400 MG CAP PO SCH ×3 (09:55→21:31)
[2023-06-12] MEDS: Hydrocortisone Sod Succ/PF 100 mg/2 ml Vial IVP SCH ×2 (09:56→21:32)
[2023-06-12] MEDS: Apixaban 5 MG TAB PO SCH ×2 (09:56→21:31)
[2023-06-12] MEDS: Flecainide 50 MG TAB PO SCH ×2 (09:58→21:31)
[2023-06-12] MEDS: Insulin Glargine 30 UNITS/0.3 ML VIAL SC SCH (21:32)
[2023-06-12] MEDS: Melatonin 3 MG TAB PO PRN (21:33)
[2023-06-12] MEDS: traMADol HCl 50 MG TAB PO PRN (21:33)
[2023-06-13] MEDS: Cefepime 2 GM in Sodium Chloride 0.9% 100 ML IVPB SCH ×2 (05:40→18:17)
[2023-06-13] MEDS: Gabapentin 400 MG CAP PO SCH ×2 (08:43→15:59)
[2023-06-13] MEDS: Hydrocortisone Sod Succ/PF 100 mg/2 ml Vial IVP SCH (08:43)
[2023-06-13] MEDS: dilTIAZem 30 MG TAB PO SCH ×3 (08:43→15:59)
[2023-06-13] MEDS: Apixaban 5 MG TAB PO SCH (08:43)
[2023-06-13] MEDS: Atorvastatin Calcium 20 MG TAB PO SCH (08:44)
[2023-06-13] MEDS: Flecainide 50 MG TAB PO SCH (08:44)
[2023-06-13 18:10] VITALS: BP 158/78; TEMP 98.6
[2023-06-13] MEDS ORDERED: Hydrocortisone 10 mg Tablet PO SCH (21:00)
== END 2023-06-13 17:50 | disposition home or self-care (01) | DRG 871 ==
LOC: SUATTDRO 17:20 → ERS 17:20 → CCU 20:26 → 2NO 06-11 18:23
PROVIDERS: ADMIT Family Medicine; ATTEND Internal Medicine
PROC: 02HV33Z Insertion of Infusion Device into Superior Vena Cava, Percutaneous Approach (ICD-10-PCS; principal; 2023-06-09)
PROC: B548ZZA Ultrasonography of Superior Vena Cava, Guidance (ICD-10-PCS; 2023-06-09)
PROC: 3E033XZ Introduction of Vasopressor into Peripheral Vein, Percutaneous Approach (ICD-10-PCS; 2023-06-09)
PROC: 3E03329 Introduction of Other Anti-infective into Peripheral Vein, Percutaneous Approach (ICD-10-PCS; 2023-06-09)
DX: A41.9 Sepsis, unspecified organism (principal); G93.41 Metabolic encephalopathy; I21.A1 Myocardial infarction type 2; R65.21 Severe sepsis with septic shock; R57.0 Cardiogenic shock; J96.21 Acute and chronic respiratory failure with hypoxia; N10 Acute pyelonephritis; N17.9 Acute kidney failure, unspecified; E27.40 Unspecified adrenocortical insufficiency; E27.2 Addisonian crisis; I48.19 Other persistent atrial fibrillation; E78.5 Hyperlipidemia, unspecified; F32.A Depression, unspecified; E83.42 Hypomagnesemia; E87.5 Hyperkalemia; D64.9 Anemia, unspecified; N20.0 Calculus of kidney; K57.90 Diverticulosis of intestine, part unspecified, without perforation or abscess without bleeding; E11.42 Type 2 diabetes mellitus with diabetic polyneuropathy; Z11.52 Encounter for screening for COVID-19; Z98.890 Other specified postprocedural states; Z79.84 Long term (current) use of oral hypoglycemic drugs; Z79.01 Long term (current) use of anticoagulants; Z99.81 Dependence on supplemental oxygen
CPT/HCPCS: 36415; 36416; 36556; 51701; 71045; 71250; 74177; 80048; 80053; 80076; 80202; 81001; 82533; 82607; 82728; 82805; 83540; 83550; 83605; 83735; 83880; 84484; 85025; 85046; 85610; 85730; 86850; 86900; 86901; 87040; 87077; 87086; 87149; 87186; 93005; 94760; 96365; 96366; 96367; 96368; 96372; J0692; J1160; J1650; J1720; J1815; J2405; J3370; J3475; J3490; J7030; J7050

== ENCOUNTER 2023-09-13 | Inpatient (IN) | payer MEDICARE | END 2023-09-23 18:59 | disposition home health service (06) | DRG 871 | PROVIDERS: ADMIT Internal Medicine | PROC: 4A033R1 Measurement of Arterial Saturation, Peripheral, Percutaneous Approach (ICD-10-PCS; 2023-09-13) | PROC: 3E03329 Introduction of Other Anti-infective into Peripheral Vein, Percutaneous Approach (ICD-10-PCS; 2023-09-13) | PROC: 3E033XZ Introduction of Vasopressor into Peripheral Vein, Percutaneous Approach (ICD-10-PCS; 2023-09-13) | PROC: 5A09357 Assistance with Respiratory Ventilation, Less than 24 Consecutive Hours, Continuous Positive Airway Pressure (ICD-10-PCS; 2023-09-14) | PROC: 30233J1 Transfusion of Nonautologous Serum Albumin into Peripheral Vein, Percutaneous Approach (ICD-10-PCS; 2023-09-14) | PROC: 02HV33Z Insertion of Infusion Device into Superior Vena Cava, Percutaneous Approach (ICD-10-PCS; principal; 2023-09-20) | PROC: B5181ZA Fluoroscopy of Superior Vena Cava using Low Osmolar Contrast, Guidance (ICD-10-PCS; 2023-09-20) | PROC: B548ZZA Ultrasonography of Superior Vena Cava, Guidance (ICD-10-PCS; 2023-09-20) | DX: A40.1 Sepsis due to streptococcus, group B (principal); G93.41 Metabolic encephalopathy; J96.21 Acute and chronic respiratory failure with hypoxia; I50.33 Acute on chronic diastolic (congestive) heart failure; R65.21 Severe sepsis with septic shock; J18.9 Pneumonia, unspecified organism; I48.19 Other persistent atrial fibrillation; N17.9 Acute kidney failure, unspecified; L03.116 Cellulitis of left lower limb; J44.1 Chronic obstructive pulmonary disease with (acute) exacerbation; I11.0 Hypertensive heart disease with heart failure; E11.40 Type 2 diabetes mellitus with diabetic neuropathy, unspecified; I48.0 Paroxysmal atrial fibrillation; E87.6 Hypokalemia; D64.9 Anemia, unspecified; K21.9 Gastro-esophageal reflux disease without esophagitis; Z99.81 Dependence on supplemental oxygen; Z79.899 Other long term (current) drug therapy; Z98.890 Other specified postprocedural states; Z90.49 Acquired absence of other specified parts of digestive tract; I08.1 Rheumatic disorders of both mitral and tricuspid valves; Z79.01 Long term (current) use of anticoagulants ==

== ENCOUNTER 2023-09-13 06:17 | Day surgery (SDC) | payer MEDICARE ==
[2023-09-12 12:24] VITALS: BMI 39.1
[2023-09-13] MEDS ORDERED: Albuterol 2.5 MG (0.5 mL) NEB ONE (07:32)
[2023-09-13] MEDS ORDERED: Sodium Chloride For Inhalation 0.9% 3 ML NEB ONE (07:37)
[2023-09-13] MEDS ORDERED: Midazolam HCl 2 mg/2 ml Vial ONE (08:04)
[2023-09-13] MEDS ORDERED: PROPOFOL 200 MG/20 ML VIAL ONE (08:41)
== END 2023-09-13 10:19 | disposition home or self-care (01) ==
LOC: SDC 06:17
PROVIDERS: ATTEND Internal Medicine Cardiovascular Disease
PROC: B246ZZ4 Ultrasonography of Right and Left Heart, Transesophageal (ICD-10-PCS; principal; 2023-09-13)
PROC: 5A2204Z Restoration of Cardiac Rhythm, Single (ICD-10-PCS; 2023-09-13)
DX: I48.91 Unspecified atrial fibrillation (principal); I08.1 Rheumatic disorders of both mitral and tricuspid valves; Z79.01 Long term (current) use of anticoagulants; Z79.899 Other long term (current) drug therapy
CPT/HCPCS: 36416; 92960; 93005; 93010; 93312; J2250; J7611